=== PATIENT | male | born 1955 | race Caucasian/White ===

== ENCOUNTER → 2023-12-14 10:27 | Outpatient (REF) | payer OTHER, SELFPAY | LOC: HWRAD 10:27 | PROVIDERS: ATTENDING PHYSICIAN Family Medicine | DX: R22.1 Localized swelling, mass and lump, neck (principal); I77.810 Thoracic aortic ectasia; M25.561 Pain in right knee; M25.562 Pain in left knee | CPT/HCPCS: 73564; 76536; 93306 ==

== ENCOUNTER → 2025-02-05 14:53 | Outpatient (REF) | payer OTHER, SELFPAY | LOC: RAD 14:53 | PROVIDERS: ATTENDING PHYSICIAN Internal Medicine Cardiovascular Disease; FAMILY PHYSICIAN Family Medicine | DX: E78.2 Mixed hyperlipidemia (principal); R60.9 Edema, unspecified; I77.810 Thoracic aortic ectasia | CPT/HCPCS: 76770; 93306 ==

== ENCOUNTER → 2025-02-11 14:49 | Outpatient (REF) | payer OTHER, SELFPAY | LOC: HWRAD 14:49 | PROVIDERS: ATTENDING PHYSICIAN Family Medicine | DX: N50.812 Left testicular pain (principal) | CPT/HCPCS: 76870; 93976 ==